=== PATIENT | female | born 1960 | race Caucasian/White ===

== ENCOUNTER 2016-11-15 11:40 | Outpatient (CLI) | payer BC | END 2016-11-15 11:41 | disposition home or self-care (01) | LOC: CONVCARE 11:40 | PROVIDERS: ATTEND Orthopaedic Surgery | DX: M17.11 Unilateral primary osteoarthritis, right knee (principal); M20.21 Hallux rigidus, right foot | CPT/HCPCS: 73560; 73630 ==